=== PATIENT | female | born 1975 | race American Indian/Alaskan Native ===

== ENCOUNTER 2018-02-27 00:12 | Emergency (ER) | payer OTHER ==
[2018-02-27 00:19] VITALS: BP 124/92; PULSE 94; RESP 18; TEMP 98.1; O2SAT 100
[2018-02-27] MEDS ORDERED: Lidocaine 2% w Epi 1:100,000 Inj IJ STA (00:36)
--- NOTE | 2018-02-27 00:59 | ED PDOC ---
HPI: Skin/Bite Injury Time Seen by Provider: 02/27/18 00:26 Chief Complaint (Nursing): Abnormal Skin Integrity Chief Complaint (Provider): Laceration, right eyebrow History Per: Patient History/Exam Limitations: no limitations Onset/Duration Of Symptoms: Mins Additional Complaint(s): 42 yo female on Xerelto for DVT while taking blood thinners presents with laceration of the right eyebrow. PT states she was otu and walked into corner of a glass door. No LOC. Tetanus UTD Past Medical History Reviewed: Historical Data, Nursing Documentation, Vital Signs Vital Signs: Last Vital Signs Temp 98.1 F 02/27/18 00:16 Pulse 94 H 02/27/18 00:16 Resp 18 02/27/18 00:16 BP 124/92 H 02/27/18 00:16 Pulse Ox 100 02/27/18 00:16 - Medical History PMH: Deep Vein Thrombosis - Surgical History Surgical History: No Surg Hx - Family History Family History: States: No Known Family Hx - Allergies Allergies/Adverse Reactions: Allergies Allergy/AdvReac Type Severity Reaction Status Date / Time No Known Allergies Allergy Verified 02/27/18 00:16 Review of Systems ROS Statement: Except As Marked, All Systems Reviewed And Found Negative Constitutional: Negative for: Fever, Chills Skin: Positive for: Other Neurological: Negative for: Altered Mental Status, Headache, Dizziness Physical Exam - Reviewed Nursing Documentation Reviewed: Yes Vital Signs Reviewed: Yes - Physical Exam Appears: Positive for: Well, Non-toxic, No Acute Distress Head Exam: Positive for: ATRAUMATIC, NORMAL INSPECTION, NORMOCEPHALIC Skin: Positive for: Warm. Negative for: Normal Color (1.5 cm laceration, right upper eyelid ) Eye Exam: Positive for: EOMI, Normal appearance, PERRL ENT: Positive for: Normal ENT Inspection Neck: Positive for: Normal Respiratory: Negative for: Accessory Muscle Use, Respiratory Distress Back: Positive for: Normal Inspection Extremity: Positive for: Normal ROM Neurologic/Psych: Positive for: Alert, Oriented - ECG O2 Sat by Pulse Oximetry: 100 Disposition - Clinical Impression Clinical Impression: Eyebrow laceration - Patient ED Disposition Is Patient to be Admitted: No Counseled Patient/Family Regarding: Diagnosis, Need For Followup - Disposition Referrals: [facility] [Outside] Disposition: Routine/Home Disposition Time: 00:58 Condition: GOOD Instructions: Laceration Repair Laceration - Laceration Repair eyebrow Wound Length (In cm): 1.5 Description Of Wound: Linear Wound Cleansed With: Sterile Saline Anesthesia: Lidocaine 1%, With Epi Wound Examination: Irrigated With Saline Wound Closure: Suture Suture Technique And Material Used: Vicryl Wound Complexity: Simple
== END 2018-02-27 01:07 | disposition home or self-care (01) ==
LOC: H.ER 00:12
DX: S01.81XA Laceration without foreign body of other part of head, initial encounter (principal); W22.8XXA Striking against or struck by other objects, initial encounter; Y92.89 Other specified places as the place of occurrence of the external cause